=== PATIENT | male | born 1995 | race Caucasian/White ===

== ENCOUNTER 2023-10-15 11:49 | Emergency (ER) | payer OTHER, SELFPAY ==
[2023-10-15 11:58] VITALS: BP 129/87; PULSE 52; RESP 20; TEMP 36.5; O2SAT 100
--- NOTE | 2023-10-15 12:10 | ED.EAR ---
HPI - Ear Problem General Chief complaint: Ear Stated complaint: ear inf History of Present Illness HPI Narrative: Patient presents with right ear pain. Patient states he has had nasal congestion for the past 2-3 days. No shortness of breath no chest pain states he has taken DayQuil [id number] for his symptoms with minimal relief in his nasal congestion. Related Data Allergies Allergy/AdvReac Type Severity Reaction Status Date / Time No Known Allergies Allergy Unverified 06/25/13 08:42 Review of Systems Review of Systems: CONSTITUTIONAL: Denies chills, or sweats. Reports fever and generalized body aches EYES: Denies visual changes, redness, or discharge. ENT: Denies otalgia. Reports nasal congestion runny nose and sore throat CARDIOVASCULAR: Denies chest pain, palpitations, or edema. RESPIRATORY: Denies dyspnea. Reports occasional cough GASTROINTESTINAL: Denies abdominal pain, nausea, vomiting, or diarrhea. GENITOURINARY: Denies dysuria or hematuria. SKIN: Denies rash or itching. MUSCULOSKELETAL: Denies back pain, joint pain, or myalgia. Reports generalized body aches NEUROLOGIC: Denies headache, numbness, or weakness. PSYCHIATRIC: Denies anxiety or depression. [facility] Family History Family History (Updated 05/26/12 @ 09:58 by DOCTOR UNKNOWN) Other Hypertension Social History Social History Smoking status: Never smoker Second hand tobacco smoke exposure: Yes Comments At time of signature, agree with nursing past medical, surgical, social and family history. There is no relevant family history pertinent to the presenting complaint Exam Narrative: The patient is a well-developed, well-nourished in no acute distress. SKIN: Skin is warm and dry without erythema, swelling or exudate. There is good turgor. No tenting. HEAD: Atraumatic. Normocephalic. No temporal or scalp tenderness. EYES: Moist and bright. Sclera and conjunctivae normal. No discharge. PERRLA. Extraocular motions intact. Gross visual acuity intact. EARS: Pinna is normal shape and contour. Clear external auditory canals. TM pearly chatterjee with good cone of light, no erythema or suppuration. Bilateral cerumen noted no gross hearing deficit. NOSE: pink, moist mucosa with good air movement. Clear rhinorrhea without nasal flaring. Septum midline. Mouth: moist mucous membranes. THROAT; mild erythema noted to posterior oropharynx with moderate postnasal drainage. Without exudate or ulceration.. Uvula midline. Normal movement of soft palate. NECK: Supple and nontender with full range of motion without discomfort. No meningeal signs. LUNGS: Equal and bilateral breath sounds without wheezes, rales or rhonchi. CHEST: The chest wall is without retractions or use of accessory muscles. HEART: Has a regular rate and rhythm without murmur, gallops, click or rub. ABDOMEN: Soft, nontender with positive active bowel sounds. No rebound tenderness. EXTREMITIES: Without cyanosis, clubbing or edema. Equal 2+ distal pulses and 2 second capillary refill noted. NEUROLOGIC: alert, active, . The patient moves all extremities with normal muscle strength. Normal muscle tone is noted. Normal coordination is noted. NO focal neurological findings noted. Course Course Level of Care: Express Care Visit Vital Signs Vital signs: Vital Signs Temperature 36.5 C 10/15/23 11:58 Pulse Rate 52 L 10/15/23 11:58 Respiratory Rate 20 10/15/23 11:58 Blood Pressure 129/87 10/15/23 11:58 Pulse Oximetry 100 10/15/23 11:58 Oxygen Delivery Room Air 10/15/23 11:58 Temperature 36.5 C 10/15/23 11:58 Pulse Rate 52 L 10/15/23 11:58 Respiratory Rate 20 10/15/23 11:58 Blood Pressure 129/87 10/15/23 11:58 Pulse Oximetry 100 10/15/23 11:58 Oxygen Delivery Room Air 10/15/23 11:58 Medical Decision Making Vital Signs Vital Signs: Vital Signs Temperature 36.5 C 10/15/23 11:58 Pulse Rate 52 L 10/15/23 11:58 Respiratory Rate 20
== END 2023-10-15 12:16 | disposition home or self-care (01) ==
PROVIDERS: Emergency Provider Nurse Practitioner Family; PCP Physician Assistant
DX: H69.91 Unspecified Eustachian tube disorder, right ear (principal)
CPT/HCPCS: 99202; G0463